=== PATIENT | female | born 1995 | race Caucasian/White ===

== ENCOUNTER 2023-07-04 14:10 | Emergency (ER) | payer MEDICAID, OTHER ==
[~2023-07-04] VITALS: Ht 154.9 cm; Wt 95.0 kg
[2023-07-04 14:15] VITALS: O2SAT 99
[2023-07-04 14:30] VITALS: TEMP 98.3
[2023-07-04] MEDS ORDERED: ACETAMINOPHEN 325MG TABLET PO ONE (14:30)
[2023-07-04] MEDS ORDERED: IBUPROFEN 400MG TABLET PO ONE (14:30)
[2023-07-04 18:30] VITALS: BP 164/96; PULSE 100; RESP 16
[2023-07-04] MEDS ORDERED: KETOROLAC 60MG/2ML VIAL IM ONE (18:30)
== END 2023-07-04 19:41 | disposition home or self-care (01) ==
LOC: ER 14:35
DX: M54.2 Cervicalgia (principal); E11.9 Type 2 diabetes mellitus without complications; V98.8XXA Other specified transport accidents, initial encounter; Y93.89 Activity, other specified; Y92.89 Other specified places as the place of occurrence of the external cause; Y99.8 Other external cause status
CPT/HCPCS: 81025; 82962; 70450; 72125; 96372; 99285; J1885; Z7610